=== PATIENT | female | born 1945 | race Caucasian/White ===

== ENCOUNTER → 2016-10-22 | Outpatient (CLI) | payer MEDICARE, MEDICAID ==
[2016-10-22 13:38] LABS: BASO % 0.8 % (0.0-1.0); EOS # 0.4 K/mm3 (0.0-0.50); LARGE UNSTAINED CELL # 0.1 K/mm3 (0.0-0.4); LARGE UNSTAINED CELL % 1.5 % (0.0-4.0); LYMPH % 28.8 % (24.0-44.0); MEAN CORPUSCULAR HEMOGLOBIN 30.6 pg (27.0-33.0); MEAN CORPUSCULAR HGB CONC 33.2 g/dl (32.0-36.5); MEAN CORPUSCULAR VOLUME 92.2 fl (80.0-96.0); MONO # 0.3 K/mm3 (0.0-0.8); MONO % 4.1 % (0.0-5.0); NEUTROPHILS # 3.8 K/mm3 (1.8-7.7); NEUTROPHILS % 57.9 % (36.0-66.0); PLATELET COUNT, AUTOMATED 212 k/mm3 (150-450); RED CELL DISTRIBUTION WIDTH 12.7 % (11.5-14.5); WHITE BLOOD COUNT 6.5 K/mm3 (4.0-10.0)
[2016-10-22 13:42] LABS: ALBUMIN 3.3 GM/DL (3.2-5.2); CALCIUM LEVEL 9.3 MG/DL (8.8-10.2); CREATININE FOR GFR 1.17 MG/DL (0.55-1.02); GLOMERULAR FILTRATION RATE 48.8 (>45); MAGNESIUM LEVEL 1.7 MG/DL (1.8-2.4); PHOSPHORUS LEVEL 3.1 MG/DL (2.5-4.9)
== END ==
LOC: M SMT 11:09
PROVIDERS: ATTEND Internal Medicine Nephrology
DX: N18.3 Chronic kidney disease, stage 3 (moderate) (principal); R80.9 Proteinuria, unspecified; E11.22 Type 2 diabetes mellitus with diabetic chronic kidney disease; I10 Essential (primary) hypertension; E83.42 Hypomagnesemia

== ENCOUNTER → 2016-12-11 | Outpatient (REF) | payer MEDICARE, MEDICAID ==
[2016-12-11 13:13] LABS: BASO % 0.7 % (0.0-1.0); EOS # 0.4 K/mm3 (0.0-0.50); EOS % 6.7 % (0.0-3.0); LARGE UNSTAINED CELL # 0.1 K/mm3 (0.0-0.4); LARGE UNSTAINED CELL % 1.7 % (0.0-4.0); LYMPH % 30.6 % (24.0-44.0); MEAN CORPUSCULAR HEMOGLOBIN 30.3 pg (27.0-33.0); MEAN CORPUSCULAR HGB CONC 33.1 g/dl (32.0-36.5); MEAN CORPUSCULAR VOLUME 91.7 fl (80.0-96.0); MONO # 0.4 K/mm3 (0.0-0.8); NEUTROPHILS # 3.4 K/mm3 (1.8-7.7); NEUTROPHILS % 54.3 % (36.0-66.0); PLATELET COUNT, AUTOMATED 239 k/mm3 (150-450); RED CELL DISTRIBUTION WIDTH 12.8 % (11.5-14.5); WHITE BLOOD COUNT 6.3 K/mm3 (4.0-10.0)
[2016-12-11 13:28] LABS: MAGNESIUM LEVEL 1.8 MG/DL (1.8-2.4); PERCENT SATURATION 21.7 % (13.2-37.4)
[2016-12-11 13:42] LABS: ALBUMIN 3.5 GM/DL (3.2-5.2); ALBUMIN/GLOBULIN RATIO 0.97 (1.00-1.93); ALKALINE PHOSPHATASE 48 U/L (45-117); ALT/SGPT 20 U/L (12-78); ANION GAP 7 MEQ/L (8-16); AST/SGOT 14 U/L (15-37); BILIRUBIN,TOTAL 0.3 MG/DL (0.2-1.0); BLOOD UREA NITROGEN 18 MG/DL (7-18); CALCIUM LEVEL 9.5 MG/DL (8.8-10.2); CARBON DIOXIDE LEVEL 32 MEQ/L (21-32); CHLORIDE LEVEL 102 MEQ/L (98-107); CHOLESTEROL LEVEL 242 MG/DL (<200); CREATININE FOR GFR 1.18 MG/DL (0.55-1.02); GLOMERULAR FILTRATION RATE 48.3 (>45); GLUCOSE, FASTING 165 MG/DL (80-110); POTASSIUM SERUM 4.7 MEQ/L (3.5-5.1); SODIUM LEVEL 141 MEQ/L (136-145); TOTAL PROTEIN 7.1 GM/DL (6.4-8.2); TRIGLYCERIDES LEVEL 554 MG/DL (<150)
== END ==
LOC: M SFHCADAM 09:09
PROVIDERS: ATTEND Physician Assistant Medical
DX: N18.3 Chronic kidney disease, stage 3 (moderate) (principal); E11.21 Type 2 diabetes mellitus with diabetic nephropathy; F34.1 Dysthymic disorder; E55.9 Vitamin D deficiency, unspecified
CPT/HCPCS: 80053; 80061; 82043; 82306; 82728; 83036; 83550; 83735; 84443; 85025; G0463

== ENCOUNTER → 2017-04-20 | Outpatient (CLI) | payer MEDICARE, MEDICAID ==
--- NOTE | 2017-04-20 15:06 | REP ---
RIGHT KNEE SERIES: Five views of the right knee performed. There is no acute fracture or dislocation. There is mild medial joint space narrowing with subchondral sclerosis and spurring. There is mild lateral patellar femoral compartment narrowing with subchondral sclerosis and mild spurring of the lateral patellar facet. There is mild spurring of the superior and inferior poles of the patella. There is a small joint effusion. There are vascular calcifications posteriorly. IMPRESSION: Mild diffuse degenerative changes. Small joint effusion. Signed by Frank Lopez MD 04/20/2017 03:11 P
== END ==
LOC: M ADAMS 14:27
PROVIDERS: ATTEND Physician Assistant Medical
DX: M25.461 Effusion, right knee (principal); M25.761 Osteophyte, right knee; G89.29 Other chronic pain; Z23 Encounter for immunization
CPT/HCPCS: 73564; 90662; G0008

== ENCOUNTER → 2018-02-26 | Outpatient (REF) | payer MEDICARE, MEDICAID ==
[2018-02-26 20:46] LABS: ALBUMIN 3.6 GM/DL (3.2-5.2); ALBUMIN/GLOBULIN RATIO 1.06 (1.00-1.93); ALKALINE PHOSPHATASE 43 U/L (45-117); ALT/SGPT 20 U/L (12-78); ANION GAP 9 MEQ/L (8-16); AST/SGOT 21 U/L (7-37); BILIRUBIN,TOTAL 0.4 MG/DL (0.2-1.0); BLOOD UREA NITROGEN 23 MG/DL (7-18); CALCIUM LEVEL 9.1 MG/DL (8.8-10.2); CARBON DIOXIDE LEVEL 29 MEQ/L (21-32); CHLORIDE LEVEL 103 MEQ/L (98-107); CREATININE FOR GFR 1.23 MG/DL (0.55-1.30); GLOMERULAR FILTRATION RATE 45.8 (>39); GLUCOSE, FASTING 240 MG/DL (70-100); POTASSIUM SERUM 5.2 MEQ/L (3.5-5.1); SODIUM LEVEL 141 MEQ/L (136-145)
[2018-02-26 20:48] LABS: ESTIMATED AVERAGE GLUCOSE 203 MG/DL (60-110); HEMOGLOBIN A1c 8.7 %
== END ==
LOC: M SFHCADAM 15:55
DX: E11.21 Type 2 diabetes mellitus with diabetic nephropathy (principal)
CPT/HCPCS: 80053

== ENCOUNTER → 2018-09-17 | Outpatient (REF) | payer MEDICARE, MEDICAID ==
[2018-09-17 19:50] LABS: CHOLESTEROL LEVEL 211 MG/DL (<200); CHOLESTEROL RISK RATIO 4.489 (<5); HDL CHOLESTEROL 47 MG/DL (>40); NON-HDL-C 164 MG/DL; TRIGLYCERIDES LEVEL 512 MG/DL (<150)
[2018-09-17 20:21] LABS: HEMOGLOBIN A1c 9.3 %
== END ==
LOC: M SFHCADAM 16:15
PROVIDERS: ATTEND Physician Assistant Medical
DX: E11.21 Type 2 diabetes mellitus with diabetic nephropathy (principal); E78.1 Pure hyperglyceridemia; I12.9 Hypertensive chronic kidney disease with stage 1 through stage 4 chronic kidney disease, or unspecified chronic kidney disease; N18.3 Chronic kidney disease, stage 3 (moderate); E55.9 Vitamin D deficiency, unspecified

== ENCOUNTER → 2019-09-01 | Outpatient (REF) | payer MEDICARE, BC ==
[2019-09-01 19:30] LABS: BASO # 0.1 10^3/uL (0.0-0.2); BASO % 0.8 % (0.0-1.0); EOS # 0.3 10^3/uL (0.0-0.5); EOS % 3.4 % (0.0-3.0); HEMATOCRIT 51.2 % (36.0-47.0); HEMOGLOBIN 16.3 g/dl (12.0-15.5); LYMPH # 1.5 10^3/uL (1.5-5.0); LYMPH % 16.4 % (24.0-44.0); MEAN CORPUSCULAR HEMOGLOBIN 30.1 pg (27.0-33.0); MEAN CORPUSCULAR HGB CONC 31.8 g/dl (32.0-36.5); MEAN CORPUSCULAR VOLUME 94.6 fl (80.0-96.0); MONO # 0.5 10^3/uL (0.0-0.8); MONO % 5.2 % (0.0-5.0); NEUTROPHILS # 6.8 10^3/uL (1.5-8.5); NEUTROPHILS % 73.7 % (36.0-66.0); PLATELET COUNT, AUTOMATED 227 10^3/uL (150-450); RED BLOOD COUNT 5.41 10^6/uL (4.00-5.40); WHITE BLOOD COUNT 9.2 10^3/uL (4.0-10.0)
[2019-09-01 19:46] LABS: HEMOGLOBIN A1c 9.3 %
[2019-09-01 19:53] LABS: APPEARANCE, URINE CLOUDY (CLEAR); COLOR, URINE AMBER (YELLOW)
[2019-09-01 19:54] LABS: BILIRUBIN, URINE AUTO NEGATIVE (NEGATIVE); GLUCOSE, URINE (UA) AUTO 3+ mg/dL (NEGATIVE); KETONE, URINE AUTO TRACE mg/dL (NEGATIVE); NITRITE, URINE AUTO NEGATIVE (NEGATIVE); PROTEIN, URINE AUTO 3+ mg/dL (NEGATIVE); SPECIFIC GRAVITY URINE AUTO 1.035 (1.002-1.035); UROBILINOGEN, URINE AUTO 0.2 mg/dL (0.0-2.0)
[2019-09-01 19:55] LABS: BLOOD, URINE BLOOD NEGATIVE (NEGATIVE); LEUKOCYTE ESTERASE, URINE AUTO NEGATIVE (NEGATIVE); MUCUS, URINE SMALL (NEGATIVE); RBC, URINE AUTO 2 /HPF (0-3); SQUAMOUS EPITHELIAL CELL UR AU 13 /HPF (0-6); TRANSITIONAL EPITHELIAL AUTO <1 /HPF; WBC, URINE AUTO 6 /HPF (0-3)
[2019-09-01 19:56] LABS: AMORPHOUS SEDIMENT SMALL (NEGATIVE)
[2019-09-01 19:59] LABS: ALT/SGPT 19 U/L (12-78); BILIRUBIN,TOTAL 0.3 MG/DL (0.2-1.0); BLOOD UREA NITROGEN 13 MG/DL (7-18); CALCIUM LEVEL 9.2 MG/DL (8.8-10.2); CARBON DIOXIDE LEVEL 31 MEQ/L (21-32); CHLORIDE LEVEL 101 MEQ/L (98-107); CHOLESTEROL LEVEL 235 MG/DL (<200); CHOLESTEROL RISK RATIO 4.351 (<5); CREATININE FOR GFR 1.03 MG/DL (0.55-1.30); FREE T4 1.09 NG/DL (0.76-1.46); GLOMERULAR FILTRATION RATE 56.1 (>39); GLUCOSE, FASTING 248 MG/DL (70-100); HDL CHOLESTEROL 54 MG/DL (>40); NON-HDL-C 181 MG/DL; POTASSIUM SERUM 5.4 MEQ/L (3.5-5.1); SODIUM LEVEL 139 MEQ/L (136-145); TOTAL PROTEIN 6.4 GM/DL (6.4-8.2); TRIGLYCERIDES LEVEL 550 MG/DL (<150)
[2019-09-01 20:42] LABS: MAU/CREAT RATIO 12233.5 MCG/MG (0.0-30.0)
== END ==
LOC: M SFHCADAM 15:25
PROVIDERS: ATTEND Physician Assistant Medical
DX: E78.1 Pure hyperglyceridemia (principal); I12.9 Hypertensive chronic kidney disease with stage 1 through stage 4 chronic kidney disease, or unspecified chronic kidney disease; E11.21 Type 2 diabetes mellitus with diabetic nephropathy; N18.3 Chronic kidney disease, stage 3 (moderate); E55.9 Vitamin D deficiency, unspecified

== ENCOUNTER → 2020-03-14 | Outpatient (CLI) | payer MEDICARE, BC ==
[2020-03-14 13:42] LABS: BASO # 0.1 10^3/uL (0.0-0.2); EOS # 0.3 10^3/uL (0.0-0.5); EOS % 5.7 % (0.0-3.0); HEMATOCRIT 42.9 % (36.0-47.0); HEMOGLOBIN 13.3 g/dl (12.0-15.5); LYMPH # 1.5 10^3/uL (1.5-5.0); LYMPH % 25.8 % (24.0-44.0); MEAN CORPUSCULAR HEMOGLOBIN 29.8 pg (27.0-33.0); MEAN CORPUSCULAR VOLUME 96.2 fl (80.0-96.0); MONO # 0.4 10^3/uL (0.0-0.8); MONO % 7.1 % (0.0-5.0); NEUTROPHILS # 3.5 10^3/uL (1.5-8.5); NEUTROPHILS % 59.4 % (36.0-66.0); PLATELET COUNT, AUTOMATED 200 10^3/uL (150-450); RED BLOOD COUNT 4.46 10^6/uL (4.00-5.40); WHITE BLOOD COUNT 5.9 10^3/uL (4.0-10.0)
[2020-03-14 14:08] LABS: ALT/SGPT 22 U/L (12-78); BILIRUBIN,TOTAL 0.3 MG/DL (0.2-1.0); BLOOD UREA NITROGEN 28 MG/DL (7-18); CALCIUM LEVEL 9.1 MG/DL (8.8-10.2); CARBON DIOXIDE LEVEL 30 MEQ/L (21-32); CHLORIDE LEVEL 102 MEQ/L (98-107); CHOLESTEROL LEVEL 189 MG/DL (<200); CHOLESTEROL RISK RATIO 4.725 (<5); CREATININE FOR GFR 1.49 MG/DL (0.55-1.30); GLOMERULAR FILTRATION RATE 36.5 (>39); GLUCOSE, FASTING 331 MG/DL (70-100); HDL CHOLESTEROL 40 MG/DL (>40); NON-HDL-C 149 MG/DL; POTASSIUM SERUM 5.1 MEQ/L (3.5-5.1); SODIUM LEVEL 138 MEQ/L (136-145); TOTAL PROTEIN 6.2 GM/DL (6.4-8.2); TRIGLYCERIDES LEVEL 644 MG/DL (<150)
[2020-03-14 14:43] LABS: HEMOGLOBIN A1c 9.6 %
== END ==
LOC: M LABDRWAD 09:48
PROVIDERS: ATTEND Physician Assistant Medical
DX: N18.3 Chronic kidney disease, stage 3 (moderate) (principal); E11.22 Type 2 diabetes mellitus with diabetic chronic kidney disease; E78.5 Hyperlipidemia, unspecified

== ENCOUNTER → 2020-03-14 | Outpatient (CLI) | payer MEDICARE, BC ==
--- NOTE | 2020-03-23 09:44 | REP ---
TWO VIEW CHEST HISTORY: Dyspnea. COMPARISON: 03/30/2014. TECHNIQUE: Two views of the chest are performed. FINDINGS: There is mild chronic interstitial prominence in the lung bases. No acute infiltrate or pulmonary edema is seen. There is mild left ventricular prominence. There is mild calcification of the thoracic aorta. The mediastinal silhouette is unchanged. There are degenerative changes of the spine. IMPRESSION: Stable chronic interstitial prominence in the lung bases. Mild left ventricle prominence. Mild elevation of the left hemidiaphragm. No acute infiltrate or pulmonary edema. MTDD
== END ==
LOC: M ADAMS 09:44
PROVIDERS: ATTEND Physician Assistant Medical
DX: R06.00 Dyspnea, unspecified (principal); N18.3 Chronic kidney disease, stage 3 (moderate); E11.22 Type 2 diabetes mellitus with diabetic chronic kidney disease; E78.5 Hyperlipidemia, unspecified

== ENCOUNTER → 2021-03-06 | Outpatient (REF) | payer MEDICARE, BC | LOC: M LAB REF 17:38 | PROVIDERS: ATTEND Nurse Practitioner Family | DX: E83.42 Hypomagnesemia (principal) ==

== ENCOUNTER → 2021-03-08 | Outpatient (REF) | payer MEDICARE, BC ==
[2021-03-08 19:48] LABS: HEMOGLOBIN A1c 11.5 %
[2021-03-08 20:05] LABS: CHOLESTEROL LEVEL 181 MG/DL (<200); CHOLESTEROL RISK RATIO 4.525 (<5); HDL CHOLESTEROL 40 MG/DL (>40); NON-HDL-C 141 MG/DL; TRIGLYCERIDES LEVEL 784 MG/DL (<150)
== END ==
LOC: M SFHCADAM 15:30
PROVIDERS: ATTEND Physician Assistant Medical
DX: E78.1 Pure hyperglyceridemia (principal); E11.65 Type 2 diabetes mellitus with hyperglycemia

== ENCOUNTER → 2022-06-03 | Outpatient (REF) | payer MEDICARE, BC ==
[2022-06-03 17:19] LABS: BASO # 0.1 10^3/uL (0.0-0.2); EOS # 0.5 10^3/uL (0.0-0.5); EOS % 5.7 % (0.0-3.0); HEMATOCRIT 45.5 % (36.0-47.0); LYMPH # 1.9 10^3/uL (1.5-5.0); LYMPH % 20.5 % (24.0-44.0); MEAN CORPUSCULAR HEMOGLOBIN 28.5 pg (27.0-33.0); MEAN CORPUSCULAR HGB CONC 30.8 g/dl (32.0-36.5); MEAN CORPUSCULAR VOLUME 92.7 fl (80.0-96.0); MONO # 0.5 10^3/uL (0.0-0.8); MONO % 4.9 % (2.0-8.0); NEUTROPHILS # 6.2 10^3/uL (1.5-8.5); NEUTROPHILS % 67.5 % (36.0-66.0); PLATELET COUNT, AUTOMATED 249 10^3/uL (150-450); RED BLOOD COUNT 4.91 10^6/uL (4.00-5.40); WHITE BLOOD COUNT 9.2 10^3/uL (4.0-10.0)
[2022-06-03 17:43] LABS: CREATININE, URINE 35.6 MG/DL; MAGNESIUM LEVEL 1.7 MG/DL (1.8-2.4)
[2022-06-03 17:45] LABS: ALBUMIN 2.7 G/DL (3.2-5.2); ALKALINE PHOSPHATASE 69 U/L (46-116); ALT/SGPT 23 U/L (7.0-40); AST/SGOT 24 U/L (<34); BILIRUBIN,TOTAL 0.3 MG/DL (0.3-1.2); BLOOD UREA NITROGEN 22 MG/DL (9-23); CALCIUM LEVEL 8.7 MG/DL (8.3-10.6); CARBON DIOXIDE LEVEL 30 MMOL/L (20-31); CHLORIDE LEVEL 104 MMOL/L (98-107); CHOLESTEROL LEVEL 132 MG/DL (<200); CHOLESTEROL RISK RATIO 2.92 (<5); CREATININE FOR GFR 1.09 MG/DL (0.55-1.30); FOLATE > 24.0 NG/ML (>5.4); GLOMERULAR FILTRATION RATE 52.1 (>39); GLUCOSE, FASTING 112 MG/DL (74-106); HDL CHOLESTEROL 45.1 MG/DL (>40); LDL CHOLESTEROL 34.7 MG/DL (<100); NON-HDL-C 87 MG/DL; POTASSIUM SERUM 4.4 MMOL/L (3.5-5.1); SODIUM LEVEL 144 MMOL/L (136-145); THYROID STIMULATING HORMONE 3.222 uIU/ML (0.55-4.78); TOTAL 25(OH) VITAMIN D 32.6 NG/ML (20.0-100.0); TOTAL PROTEIN 6.3 G/DL (5.7-8.2); TRIGLYCERIDES LEVEL 261 MG/DL (<150)
[2022-06-03 17:48] LABS: VITAMIN B12 LEVEL 543 PG/ML (211-911)
[2022-06-03 17:59] LABS: MAU/CREAT RATIO 1067.4 MCG/MG (0.0-30.0)
[2022-06-03 18:32] LABS: HEMOGLOBIN A1c 7.2 % (4.0-6.0)
== END ==
LOC: M SFHCADAM 13:41
PROVIDERS: ATTEND Physician Assistant Medical
DX: E11.21 Type 2 diabetes mellitus with diabetic nephropathy (principal); E78.1 Pure hyperglyceridemia; F17.210 Nicotine dependence, cigarettes, uncomplicated; K21.9 Gastro-esophageal reflux disease without esophagitis; E55.9 Vitamin D deficiency, unspecified

== ENCOUNTER → 2022-12-09 | Outpatient (REF) | payer MEDICARE, BC ==
[2022-12-09 17:26] LABS: ALBUMIN 2.9 G/DL (3.2-5.2); BILIRUBIN,TOTAL 0.3 MG/DL (0.3-1.2); CALCIUM LEVEL 8.5 MG/DL (8.3-10.6); CHOLESTEROL RISK RATIO 2.48 (<5); CREATININE FOR GFR 1.15 MG/DL (0.55-1.30); HDL CHOLESTEROL 45.8 MG/DL (>40); LDL CHOLESTEROL 19.6 MG/DL (<100); MAGNESIUM LEVEL 1.7 MG/DL (1.8-2.4); NON-HDL-C 68.2 MG/DL; POTASSIUM SERUM 3.9 MMOL/L (3.5-5.1); THYROID STIMULATING HORMONE 4.229 uIU/ML (0.55-4.78)
[2022-12-09 17:51] LABS: HEMOGLOBIN A1c 6.6 % (4.0-6.0)
== END ==
LOC: M SFHCADAM 14:13
PROVIDERS: ATTEND Physician Assistant Medical
DX: E11.21 Type 2 diabetes mellitus with diabetic nephropathy (principal); E78.1 Pure hyperglyceridemia; E55.9 Vitamin D deficiency, unspecified; I50.22 Chronic systolic (congestive) heart failure

== ENCOUNTER 2023-09-13 00:15 | Emergency (ER) | payer MEDICARE, BC ==
[~2023-09-13] VITALS: Ht 167.6 cm; Wt 101.1 kg
[2023-09-13] MEDS ORDERED: EPINEPHrine 1MG/10ML SYRINGE 1.5IN ONE (00:16)
[2023-09-13] MEDS ORDERED: SODIUM BICARBONATE 8.4% INJ 50ML SYRINGE ONE (00:16)
[2023-09-13] MEDS ORDERED: DEXTROSE 50% 50ML SYRINGE ONE (00:16)
[2023-09-13] MEDS: DEXTROSE 50% 50ML SYRINGE IV ONE (00:27)
[2023-09-13] MEDS: ONDANSETRON 4MG 2ML VIAL IV ONE (00:30)
[2023-09-13] MEDS: NS 1,000 ML IV ONE (00:31)
[2023-09-13] MEDS: D5W/LR 1,000 ML IV SCH (00:33)
[2023-09-13 01:00] LABS: HEMATOCRIT 36.8 % (36.0-47.0); HEMOGLOBIN 11.6 g/dl (12.0-15.5); MEAN CORPUSCULAR HEMOGLOBIN 27.6 pg (27.0-33.0); MEAN CORPUSCULAR HGB CONC 31.5 g/dl (32.0-36.5); MEAN CORPUSCULAR VOLUME 87.6 fl (80.0-96.0); PLATELET COUNT, AUTOMATED 276 10^3/uL (150-450)
[2023-09-13 01:06] LABS: ABG BASE EXCESS -5.1 (-2.0-2.0); ABG HCO3 23.1 MMOL/L (22.0-26.0); ABG O2 SATURATION 98.4 % (95.0-99.0); ABG PARTIAL PRESSURE CO2 57.1 mmHg (35.0-45.0); ABG PARTIAL PRESSURE O2 158.8 mmHg (75.0-100.0); ABG STANDARD HCO3 20.3 MMOL/L. (22.0-26.0); ABG TOTAL CO2 24.8 MMOL/L (23.0-31.0)
[2023-09-13 01:07] LABS: ABG pH (ARTERIAL) 7.224 UNITS (7.350-7.450)
[2023-09-13 01:11] LABS: WHITE BLOOD COUNT 30.6 10^3/uL (4.0-10.0)
[2023-09-13 01:14] LABS: CK-MB VALUE MASS 3.1 NG/ML (<3.6)
[2023-09-13 01:15] LABS: ETHYL ALCOHOL (ETHANOL) 0.005 % (0.000-0.010)
[2023-09-13 01:16] LABS: CPK CREATINE PHOSPHOKINASE 382 U/L (34-145); MB/CK RELATIVE INDEX 0.81 (< OR =4)
[2023-09-13 01:17] LABS: ALBUMIN 1.7 G/DL (3.2-5.2); ALKALINE PHOSPHATASE 130 U/L (46-116); ALT/SGPT 91 U/L (7.0-40); AST/SGOT 109 U/L (<34); BILIRUBIN,DIRECT 0.2 MG/DL (<0.4); BILIRUBIN,TOTAL 0.4 MG/DL (0.3-1.2); BLOOD UREA NITROGEN 37 MG/DL (9-23); CALCIUM LEVEL 7.9 MG/DL (8.3-10.6); CARBON DIOXIDE LEVEL 29 MMOL/L (20-31); CHLORIDE LEVEL 105 MMOL/L (98-107); CREATININE FOR GFR 1.73 MG/DL (0.55-1.30); GLOMERULAR FILTRATION RATE 30.5 (>39); GLUCOSE, FASTING 63 MG/DL (74-106); POTASSIUM SERUM 3.4 MMOL/L (3.5-5.1); SALICYLATE LEVEL < 3.0 MG/DL (<30); SODIUM LEVEL 139 MMOL/L (136-145); TOTAL PROTEIN 5.6 G/DL (5.7-8.2)
[2023-09-13 01:18] LABS: THYROID STIMULATING HORMONE 1.968 uIU/ML (0.55-4.78)
[2023-09-13 01:32] LABS: EOSINOPHILS 1 % (0-3); LYMPHOCYTES 2 % (16-44); MONOCYTES 2 % (0-5); NEUTROPHILS 95 % (28-66); PLATELET ESTIMATE NORMAL (NORMAL)
[2023-09-13 01:33] VITALS: TEMP 97.2
[2023-09-13] MEDS: NS 3,030 ML in IV 1 EA IV ONE (01:35)
[2023-09-13] MEDS: cefTRIAXone SOD 2 GM in D5W MINI-BAG PLUS 50 ML IV ONE (01:43)
[2023-09-13 02:02] LABS: AMPHETAMINES LEVEL URINE NEGATIVE (NEGATIVE); BARBITURATES URINE NEGATIVE (NEGATIVE); BENZODIAZEPINES URINE NEGATIVE (NEGATIVE); COCAINE METABOLITE URINE NEGATIVE (NEGATIVE); METHADONE URINE NEGATIVE (NEGATIVE); PHENCYCLIDINE URINE NEGATIVE (NEGATIVE)
[2023-09-13 02:03] LABS: CANNABINOIDS URINE NEGATIVE (NEGATIVE)
[2023-09-13 02:09] LABS: OPIATES URINE POSITIVE (NEGATIVE)
[2023-09-13] MEDS: AZITHROMYCIN INJ 500 MG, VIAL MATE ADAPTER 1 EACH in NS 250 ML IV ONE (02:24)
[2023-09-13 02:57] VITALS: BP 118/67
[2023-09-13] MEDS ORDERED: FURO20TA2 PO (03:17)
[2023-09-13] MEDS ORDERED: ACET-645 PO (03:17)
[2023-09-13] MEDS ORDERED: EZET10TA21 PO (03:17)
[2023-09-13] MEDS ORDERED: RENATAB5 PO (03:17)
[2023-09-13] MEDS ORDERED: VITA500C24 PO (03:17)
[2023-09-13] MEDS ORDERED: ATOR80TA59 PO (03:17)
[2023-09-13] MEDS ORDERED: FARX1TAB3 PO (03:17)
[2023-09-13] MEDS ORDERED: EQL50TAB2 PO (03:17)
[2023-09-13] MEDS ORDERED: AMLO1TAB24 PO (03:17)
[2023-09-13] MEDS ORDERED: CLOP75TA2 PO (03:17)
[2023-09-13] MEDS ORDERED: ALBU8.5H INH (03:17)
[2023-09-13] MEDS ORDERED: CARV25TA PO (03:17)
[2023-09-13] MEDS ORDERED: TRAZ-252 PO (03:17)
[2023-09-13] MEDS ORDERED: MAGN64TASA PO (03:17)
[2023-09-13] MEDS ORDERED: ANOR1AER INH (03:17)
[2023-09-13] MEDS ORDERED: ASPI81TA26 PO (03:17)
[2023-09-13] MEDS ORDERED: ISOS1TAB35 PO (03:17)
[2023-09-13] MEDS ORDERED: INSULANT INJ (03:17)
[2023-09-13] MEDS ORDERED: VITA100093 PO (03:17)
[2023-09-13] MEDS ORDERED: OMEP40CA5 PO (03:17)
[2023-09-13] MEDS ORDERED: HOME MED LIST COMPLETE! XX SCH (03:20)
[2023-09-13 03:21] VITALS: O2SAT 72
== END 2023-09-13 06:23 | disposition expired ==
LOC: EDBD 00:15 → M ED 00:15
DX: I46.9 Cardiac arrest, cause unspecified (principal); J18.9 Pneumonia, unspecified organism; A41.9 Sepsis, unspecified organism; J96.01 Acute respiratory failure with hypoxia; E11.649 Type 2 diabetes mellitus with hypoglycemia without coma; I10 Essential (primary) hypertension; J44.9 Chronic obstructive pulmonary disease, unspecified; E78.5 Hyperlipidemia, unspecified; K21.9 Gastro-esophageal reflux disease without esophagitis; Z79.52 Long term (current) use of systemic steroids; Z79.82 Long term (current) use of aspirin; Z79.4 Long term (current) use of insulin; Z79.02 Long term (current) use of antithrombotics/antiplatelets; Z79.83 Long term (current) use of bisphosphonates; Z79.899 Other long term (current) drug therapy
CPT/HCPCS: 36600; 51701; 70450; 71045; 80048; 80076; 80143; 80307; 81001; 82077; 82140; 82550; 82553; 82803; 83605; 84443; 84484; 85025; 87040; 87077; 87184; 87186; 87486; 87581; 87633; 87798; 93005; 93041; 94760; 96365; 96375; 99291; J0171; J0456; J0696; J2405